=== PATIENT | male | born 1975 | race Two or more races ===

== ENCOUNTER 2025-04-21 17:57 | Emergency (ER) | payer MEDICAID, OTHER ==
[~2025-04-21] VITALS: Ht 160 cm; Wt 71.0 kg
[2025-04-21 21:57] VITALS: BP 127/85; PULSE 74; RESP 17; TEMP 98.5; O2SAT 99
--- NOTE | 2025-04-21 21:58 | ED.PDOC ---
HPI Comments 49 year old male presents to ER with complaints of laceration to right 1st finger x 1 day. Patient states he sustained a laceration to right 1st finger from a table saw at 4:30 p.m. prior to arrival to arrival to ER at work. He rates his current pain a 6/10 to right 1st finger without radiation and denies use of medications for current symptoms. Notes he's unsure when his last tetanus shot was. Denies numbness/tingling or any further symptoms/complaints Chief Complaint: Laceration Time Seen by MD: 18:19 Primary Care Provider: KWAME Reviewed Notes: Nurses Notes, Medications, Allergies Allergies: Coded Allergies: NO KNOWN ALLERGIES (Unverified , 04/21/25) Home Meds Active Scripts Ibuprofen (Ibuprofen) 800 Mg Tab, 1 TAB PO TID PRN, #30 TAB 0 Refills Prov:SALVADOR YOUNG 04/21/25 Clindamycin Hcl (Clindamycin Hcl) 300 Mg Cap, 300 MG PO QID for 7 Days, #28 CAP 0 Refills Prov:SALVADOR YOUNG 04/21/25 Information Source: Patient Mode of Arrival: Ambulatory Complexity: Intermediate Laceration Length (cm): 3 Skin Type: Irregular Past Medical History PAST MEDICAL HISTORY: Denies Surgical History: Denies all surgeries Family History Family History: Unknown Social History Smoker: Non-Smoker Alcohol: Denies ETOH Use Drugs: Denies Drug Use Lives In: Home Constitutional: denies: chills, diaphoresis, fatigue, fever, malaise, sweats, weakness, others EENTM: denies: blurred vision, double vision, ear bleeding, ear discharge, ear drainage, ear pain, ear ringing, eye pain, eye redness, hearing loss, mouth pain, mouth swelling, nasal discharge, nose bleeding, nose congestion, nose pain, photophobia, tearing, throat pain, throat swelling, voice changes, others Respiratory: denies: cough, hemoptysis, orthopnea, SOB at rest, shortness of breath, SOB with excertion, stridor, wheezing, others Cardiovascular: denies: chest pain, dizzy spells, diaphoresis, Dyspnea on exertion, edema, irregular heart beat, left arm pain, lightheadedness, palpitations, PND, syncope, others Gastrointestinal: denies: abdomen distended, abdominal pain, blood streaked bowels, constipated, diarrhea, dysphagia, difficulty swallowing, hematemesis, melena, nausea, poor appetite, poor fluid intake, rectal bleeding, rectal pain, vomiting, others Genitourinary: denies: burning, dysuria, flank pain, frequency, hematuria, incontinence, penile discharge, penile sore, pain, testicle pain, testicle swelling, urgency, others Neurological: denies: dizziness, fainting, headache, left sided numbness, left sided weakness, numbness, paresthesia, pre-existing deficit, right sided numbness, right sided weakness, seizure, speech problems, tingling, tremors, weakness, others Musculoskeletal: reports: others (As stated in HPI) Integumetry: reports: others (As stated in HPI) Allergic/Immunocompromised: denies: Difficulty Healing, Frequent Infections, Hives, Itching, others Hematologic/Lymphatic: denies: anemia, blood clots, easy bleeding, easy bruising, swollen glands, others Endocrine: denies: excessive hunger, excessive sweating, excessive thirst, excessive urination, flushing, intolerance to cold, intolerance to heat, unexplained weight gain, unexplained weight loss, others Psychiatric: denies: anxiety, bipolar disorder, depression, hopeless, panic disorder, schizophrenia, sleepless, suicidal, others Physical Exam General Appearance: No Apparent Distress HEENT: PERRL/EOMI Neck: Full Range of Motion, Non-Tender, Normal Respiratory: Chest Non-Tender, Lungs Clear, No Accessory Muscle Use, No Respiratory Distress, Normal Breath Sounds Cardiovascular: No Murmur, No Gallop, Regular Rate/Rhythm Breast Exam: Deferred Gastrointestinal: NOT DONE Genitalia: Deferred Pelvic: Deferred Rectal: Deferred Extremities: Normal capillary refill, Normal range of motion Neurologic: Alert, No Motor Deficits, Normal Affect, Normal Mood, No Sensory Deficits Cerebellar Function: Normal Reflexes: Normal Skin: Dry, Warm Peripheral Pulses: 2+ Radial (R), 2+ Radial (L), 2+ Brachial (R), 2+ Brachial (L) Lymphatic: No Adenopathy Was a procedure done? Was a procedure done?: Yes Sedation Sedation?: No Laceration Repair : Location Right 1st finger with partial nail bed involvement Length 3 cm Anesthetic: Lidocaine (1%), Without epi Laceration Repair Prep: Saline, Betadine, by Irrigation (heavily irrigated without any signs of foreign body) Laceration Repair Wound Comple: epidermis/dermis repair Laceration Repair: Number of sutures (Total of 8 sutures placed - patient tolerated well without any complication), Size (5-0), Nylon, Simple, Non- adherent gauze Informed consent obtained: Yes Risks, benefits, and alternati: Yes Images 1 - 3 cm laceration noted to right 1st finger with partial nailbed involvement. Slight TTP/swelling/erythema localized to wound edges. No foreign body/amputation/avulsion or further skin changes noted. Pulses intact. Patient able to fully move all fingers of right hand. Differential diagnosis Generic Laceration: Fracture, Retained Foriegn Body, Neurovascular Injury, Tendon Injury Differential Diagnosis: Other (amputation) X-Ray, Labs, Meds, VS Vital Signs Date Time Temp Pulse Resp B/P (MAP) Pulse Ox O2 Delivery O2 Flow Rate FiO2 04/21/25 21:57 98.5 74 17 127/85 (99) 99 98.5 04/21/25 21:57 Room Air* 0 21 04/21/25 17:59 98.9 66 18 130/82 100 98.9 Current Medications Medications (Trade) Dose Ordered Sig/Layo Route Start Time Stop Time Status Last Admin Diphtheria/ Tetanus/Acell Pertussis (Boostrix T-Dap) 0.5 ml ONCE ONCE IM 04/21/25 22:00 04/21/25 22:01 DC 04/21/25 22:09 Acetaminophen/ Hydrocodone Bitart (Varney 5/325MG Tab) 1 tab ONCE ONCE PO 04/21/25 22:00 04/21/25 22:01 DC 04/21/25 22:09 Ondansetron HCl (Zofran Po) 4 mg ONCE ONCE PO 04/21/25 22:00 04/21/25 22:01 DC 04/21/25 22:08 Cefazolin Sodium 50 ml @ 100 mls/hr ONCE ONCE IV 04/21/25 23:00 04/21/25 23:29 DC 04/21/25 23:14 Cefazolin Sodium 50 ml @ 100 mls/hr ONCE ONCE IV 04/21/25 23:00 04/21/25 23:29 DC 04/21/25 23:14 PATIENT: LIYA GUZMANJHOANT: [id number]: [id number] : 1975 LOC: ER ROOM / BED: / AGE / SEX: 49 / M ADM STATUS: REG ER SERVICE 57 ORDERING PHYSICIAN: SALVADOR YOUNG PROCEDURE(s): RFIN1 - R 1ST FINGER XRAY REASON: right 1st finger pain ORDER NUMBER(s): [id number], ACCESSION NUMBER(s): [id number] CLINICAL INDICATION: right 1st finger pain TECHNIQUE: 3 views XY R 1ST FINGER XRAY COMPARISON: None FINDINGS: Comminuted fracture of the 1st distal phalangeal tuft with evidence of partial distal soft tissue amputation. Radiodense debris versus displaced fragment at the distal skin surface. Associated soft tissue swelling. No dislocation or additional fracture. IMPRESSION: 1. Comminuted right thumb tuft fracture, probably open. ATED BY: SILVANO MERIDA MD DICTATED DATE/TIME: 04/21/252300 SIGNED BY: SILVANO MERIDA MD SIGNED DATE/TIME: 04/21/252300 CC: Right 1st finger x-ray reviewed Tdap 0.5 mL IM ordered Varney 5/325 mg p.o. ordered Zofran 4 mg p.o. 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 self-employed and denies current ER visit being under workman's comp Advised to follow up with PCP and orthopedic hand specialist in 1-2 days Patient verbalized understanding and agreeable with current plan of care Advised to return to ER immediately if symptoms worsen Images Reviewed?: Images reviewed and evaluated by me Time of 1ST Reevaluation: 22:03 Reevaluation 1ST: N/A Patient Education/Counseling: Diagnosis, Treatment, Prognosis, Need For Follow Up Family Education/Counseling: No Family Present Departure 1 Departure Time of Disposition: 22:58 Impression: Primary Impression: Finger fracture, right Qualified Codes: S62.501B - Fracture of unspecified phalanx of right thumb, initial encounter for open fracture Disposition: 01 HOME / SELF CARE / HOMELESS Condition: Stable e-Prescriptions Ibuprofen (Ibuprofen) 800 Mg Tab 1 TAB PO TID PRN, #30 TAB 0 Refills Prov: SALVADOR YOUNG 04/21/25 Clindamycin Hcl (Clindamycin Hcl) 300 Mg Cap 300 MG PO QID for 7 Days, #28 CAP 0 Refills Prov: SALVADOR YOUNG 04/21/25 Discharged With: Friend Critical Care Note Critical Care Time?: No Stability Stability form required: No Heart Score Heart Score: Heart Score Response (Comments) Value History N/A 0 EKG N/A 0 Age N/A 0 Risk Factors N/A 0 Troponin N/A 0 Total 0 SALVADOR YOUNG Apr 21, 2025 21:58
[2025-04-21] MEDS: ONDANSETRON ODT 4 MG TAB PO ONE (22:08)
[2025-04-21] MEDS: TETANUS-DIPTH-ACEL PERTUSSIS 0.5ML SYR Tdap IM ONE (22:09)
[2025-04-21] MEDS: HYDROcodone-ACET 5/325MG TAB PO ONE (22:09)
[2025-04-21] MEDS ORDERED: CLIN1CAP70 PO (23:03)
[2025-04-21] MEDS ORDERED: IBUP-1456 PO (23:03)
--- NOTE | 2025-04-21 23:04 | DVH ---
CLINICAL INDICATION: right 1st finger pain TECHNIQUE: 3 views XY R 1ST FINGER XRAY COMPARISON: None FINDINGS: Comminuted fracture of the 1st distal phalangeal tuft with evidence of partial distal soft tissue amputation. Radiodense debris versus displaced fragment at the distal skin surface. Associated soft tissue swelling. No dislocation or additional fracture. IMPRESSION: 1. Comminuted right thumb tuft fracture, probably open.
[2025-04-21] MEDS: ceFAZolin 1GM/50ML 50 ML IV ONE ×2 (23:14)
== END 2025-04-21 23:59 | disposition home or self-care (01) ==
LOC: ER 17:57
DX: S62.609A Fracture of unspecified phalanx of unspecified finger, initial encounter for closed fracture (principal); X58.XXXA Exposure to other specified factors, initial encounter; Y93.89 Activity, other specified; Y92.89 Other specified places as the place of occurrence of the external cause; Y99.8 Other external cause status
CPT/HCPCS: 12002; 73140; 90471; 90715; 96365; 99284; A4649; J0690; Q0162; 96360